=== PATIENT | male | born 1965 | race Caucasian/White ===

== ENCOUNTER 2022-11-09 15:01 | Emergency (ER) | payer BC, SELFPAY ==
[2022-11-09] VITALS (88 sets, daily range): BP systolic 97–127; BP diastolic 50–66; PULSE 68–80; RESP 13–27; TEMP 36.7; O2SAT 89–96
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
--- NOTE | 2022-11-09 15:15 | DI.CT_ITS ---
Exam(s) CT CHEST/ABD/PEL W EXAM: CT CHEST/ABD/PEL W CLINICAL HISTORY: Left-sided chest wall pain. TECHNIQUE: Imaging Protocol: Axial computed tomography images with coronal and sagittal reformatted images were created and reviewed CONTRAST MATERIAL: Intravenous: Omnipaque 350 Contrast volume:100 ml Oral: None COMPARISON: No exams were available for comparison FINDINGS: CHEST: OSSEOUS: There are multiple acute posterior left rib fractures there are adjacent displaced all overr iding fractures of posterior aspect of the left 8th 9th, and 10th ribs. There is a nondisplaced frac ture of the posterior aspect of the left 7th rib.. No scapular fracture there is pleural elevation a t the level of the displaced rib fractures. No obvious fracture on the opposite-right side. No compression fractures. LUNGS: There is no pneumothorax but there are mild increased markings in the lower lobes most probabl y related to hypoaeration. No large lung contusion. No pleural effusions.. MEDIASTINUM: No evidence of sternal fracture nor mediastinal hematoma. No incidental hilar nor media stinal adenopathy. Great vessels intact. CARDIAC: Heart size is normal. There is no pericardial effusion.Thoracic aorta is intact. No dissec tion. No enlargement. ABDOMEN: There is no ascites. No evidence of mesenteric nor bowel wall hematoma. LIVER: No evidence of liver laceration. No focal hepatic lesions. No dilated intrahepatic ducts. GALLBLADDER/BILIARY: No obvious gallbladder pathology. CBD is not dilated. PANCREAS: No evidence of pancreatic mass nor dilatation of the pancreatic duct. SPLEEN: No splenic laceration. Spleen size normal. No perisplenic fluid. Splenic vein is not throm bosed. Portal head patent. ADRENALS: No significant adrenal findings. KIDNEYS: No evidence of renal laceration nor subcapsular hematoma. Small 5 millimeter benign cyst po sterior cortex right kidney noted and does not require further imaging.. No solid lesions. ABDOMINAL AORTA: Intact. Not enlarged. No dissection. LYMPH NODES: There is no retroperitoneal nor paraaortic adenopathy. ABDOMINAL WALL: No evidence of significant anterior abdominal wall nor inguinal hernia. GI: No evidence of bowel wall hematoma nor mesenteric hematoma. Sigmoid diverticulosis. No acute di verticulitis evident. PELVIS: LYMPH NODES: There is no intrapelvic nor inguinal adenopathy. GI: No evidence of appendicitis.No evidence of sigmoid diverticulitis. URINARY BLADDER: Unremarkable. REPRODUCTIVE: Prostate size normal. Seminal vesicles unremarkable. OSSEOUS: No fractures. No facet malalignment. Moderate disc space narrowing L5-S1. IMPRESSION: 1. There are grossly displaced fractures in the posterior aspect of the left 8th, 9th, and 10th ribs as well as a nondisplaced fracture of the posterior aspect of the left 7th rib. 2. No evidence of prominent lung contusion nor pleural effusion or pneumothorax this time. Appropria te follow-up recommended. 3. No evidence of significant trauma sequelae in the abdomen and pelvis. 4. Sigmoid diverticulosis. No obvious acute diverticulitis. RADIATION DOSE DELIVERED: 1559.54 mGy.cm Total DLP DATA REPOSITORY: All CT scans at this facility are submitted to the National Radiology Data Registry (NRDR) Dose Index Registry (DIR) with the [employer] (ACR). RADIATION OPTIMIZATION: All CT scans at this facility use at least one of these dose optimization te chniques: automated exposure control; mA and/or kV adjustment per patient size (includes targeted exa ms where dose is matched to clinical indication); or iterative reconstruction.
--- NOTE | 2022-11-09 15:15 | RT.EKG_ITS ---
APPROVED REPORT Exam: Resting ECG Reason for Exam: Irregular heart rate Patient Location: E HR:87 bpm ECG Measurements Heart Rate 87 AXIS SD 197 P 60 QRSd 102 QRS -19 QT 401 T 31 QTc 483 Conclusion Sinus rhythm...normal P axis, V-rate 60- 99 Ventricular trigeminy...trigeminy string>6 w/ V complexes Probable left atrial enlargement...P >50mS, <-0.10mV V1 Normal sinus rhythm at a rate of 87 with interventricular conduction delay. SD and QTc within normal limits. Left axis deviation no signs of LVH. No prior for comparison. No acute injury pattern. M ild concave upsloping ST segment elevation in V2.
[2022-11-09] MEDS: fentaNYL 100 MCG/2 ML VIAL 75 MCG IVP (15:20)
--- NOTE | 2022-11-09 15:23 | DI.CT_ITS ---
Exam(s) CT THORACIC LUMBAR SPINE REC EXAM: CT THORACIC LUMBAR SPINE REC CLINICAL HISTORY: Back pain TECHNIQUE: COMPARISON: CT CT CHEST/ABD/PEL W from 11/09/2022 FINDINGS: THORACIC SPINAL COLUMN: No evidence of fracture, listhesis, nor facet malalignment. No acute comprom ise of the thoracic spinal canal. LUMBOSACRAL SPINAL COLUMN: No evidence of fracture, listhesis, nor facet malalignment. No pars defec ts. No acute compromise of the lumbosacral spinal column. No obvious sacral fractures. Sacroiliac joints appear unremarkable. IMPRESSION: No fractures evident in the thoracic and lumbosacral spinal columns. No facet malalignment.
[2022-11-09] MEDS: Normal Saline 1,000 ML 1000 ML IV (15:24)
--- NOTE | 2022-11-09 15:30 | DI.RAD_ITS ---
Exam(s) XR SHOULDER RT COMPLETE 2+V EXAM: XR SHOULDER RT COMPLETE 2+V CLINICAL HISTORY: Right shoulder pain. TECHNIQUE: 2D digital imaging was performed. COMPARISON: No exams were available for comparison FINDINGS: Four views No evidence of acute fracture or dislocation. No calcifications in the subacromial space. No obviou s degenerative changes. AC joint appears unremarkable as does the clavicle. IMPRESSION: No acute osseous findings. DATA REPOSITORY: RADIATION DOSE DELIVERED:
[2022-11-09 15:31] LABS: Abs Immature Grans 0.03 10^3/uL (0.0-0.06); Absolute Basophil Count 0.05 10^3/uL (0.0-0.2); Absolute Eosinophil Count 0.32 10^3/uL (0.0-0.7); Absolute Lymphocyte Count 1.14 10^3/uL (1.2-3.4); Absolute Monocyte Count 0.71 10^3/uL (0.1-0.8); Absolute Neutrophil Count 7.84 10^3/uL (1.2-6.7); Basophils % 0.5; Eosinophils % 3.2; HCT 45.9 % (40.0-50.0); Immature Grans % 0.3; Lymphocytes % 11.3; MCH 31.7 pg (27.0-33.0); MCHC 34.9 % (32.0-36.0); MCV 91 fL (80-95); MPV 10.6 fL (8.0-11.0); Neutrophils % 77.7; Platelet Count 178 10^3/uL (130-400); RBC 5.04 10^6/uL (4.36-5.78); RDW 12.4 % (11.8-14.1); RDW-SD 41.2 fL; WBC 10.09 10^3/uL (4.4-10.8)
[2022-11-09] MEDS: Normal Saline - Diluent 50 ML VIAL IJ (15:31)
[2022-11-09] MEDS: Omnipaque 350 MG/ML 100 ML BTL IJ (15:31)
[2022-11-09] MEDS: Normal Saline Flush 10 ML SYR IVP (15:31)
[2022-11-09 15:42] LABS: Anion Gap 9.5 mmol/L (3-11); BUN 25 mg/dL (7-18); CO2 26.5 mmol/L (21.0-32.0); CREATININE 1.3 mg/dL (0.70-1.30); Chloride 105 mmol/L (98-107); Estimated GFR 64.47 (mL/min/1.73m2); Glucose 92 mg/dL (74-106); Potassium 4.3 mmol/L (3.5-5.1); Sodium 141 mmol/L (136-145)
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
--- NOTE | 2022-11-09 16:08 | DI.VRAD_ITS ---
PROCEDURE INFORMATION: Exam: CT Thoracic Spine Without Contrast Exam date and time: 11/09/2022 3:49 PM Age: 57 years old Clinical indication: Other: Back pain TECHNIQUE: Imaging protocol: Computed tomography of the thoracic spine without contrast. Radiation optimization: All CT scans at this facility use at least one of these dose optimization techniques: automated exposure control; mA and/or kV adjustment per patient size (includes targeted exams where dose is matched to clinical indication); or iterative reconstruction. COMPARISON: CT HEAD CERVICAL SPINE WO 11/09/2022 3:38 PM FINDINGS: Nondisplaced fracture in the posterior aspect of the left 7th rib. Grossly displaced fracture in the posterior aspect the left 8th rib. Grossly displaced fracture in the posterior aspect of the left 9th rib. Comminuted displaced fracture of the posterior aspect of the left 10th rib. The vertebral body heights are preserved. No aggressive bone lesion. Very mild multilevel degenerative change. No significant soft tissue abnormality. Focal pleural thickening, left posterior lower lung zone adjacent to rib fractures, may represent subpleural hematoma. Dependent ground-glass opacities may represent hypoventilatory change. Parenchymal hemorrhage may present similarly. A high Small hiatal hernia. Mild coronary artery calcification. IMPRESSION: Acute displaced posterior left 8th, 9th, 10th rib fractures. Nondisplaced posterior left 7th rib fracture. The lateral ribs are excluded from the field of view. Dependent left posterior basilar pleuroparenchymal opacities, may be posttraumatic. PROCEDURE INFORMATION: Exam: CT Lumbar Spine Without Contrast Exam date and time: 11/09/2022 3:49 PM Age: 57 years old Clinical indication: Other: Back pain TECHNIQUE: Imaging protocol: Computed tomography of the lumbar spine without contrast. Radiation optimization: All CT scans at this facility use at least one of these dose optimization techniques: automated exposure control; mA and/or kV adjustment per patient size (includes targeted exams where dose is matched to clinical indication); or iterative reconstruction. COMPARISON: No relevant prior studies available. FINDINGS: Alignment is essentially anatomic. No acute fracture seen. The vertebral body heights are preserved. No aggressive bone lesion. Mild multilevel degenerative change. No significant soft tissue abnormality. Mild symmetric sacroiliitis. Degenerative change of the bilateral hips. Diverticulosis without diverticulitis. IMPRESSION: No acute fracture seen. Dictated and Authenticated by: Mei Green MD. Ordering:SAUL Reno MD
[2022-11-09] MEDS: HYDROmorphone 2 MG/ML SYR 0.5 MG IVP ×2 (16:10→17:19)
[2022-11-09] MEDS: Tetanus & Diphtheria Tox,ADULT 0.5 ML VIAL IM (16:11)
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
[2022-11-09] MEDS: Ondansetron 4 MG/2 ML VIAL IVP (17:00)
[2022-11-09] MEDS: Normal Saline 500 ML IV (17:00)
--- NOTE | 2022-11-09 17:00 | NUR.NOTE ---
pt has become diaphoretic, MD Masterson aware. pt continues to mentate at baseline and maintains vital signs
--- NOTE | 2022-11-09 18:49 | NUR.NOTE ---
report called to [facility], spoke with SHASHA Narvaez
== END 2022-11-09 17:44 | disposition short-term general hospital (02) ==
PROVIDERS: Emergency Provider Emergency Medicine
DX: M25.511 Pain in right shoulder (principal); M54.9 Dorsalgia, unspecified; R07.89 Other chest pain; R10.84 Generalized abdominal pain; V19.9XXA Pedal cyclist (driver) (passenger) injured in unspecified traffic accident, initial encounter; S70.312A Abrasion, left thigh, initial encounter; I48.91 Unspecified atrial fibrillation; S27.322A Contusion of lung, bilateral, initial encounter; J90 Pleural effusion, not elsewhere classified
CPT/HCPCS: 74177; 76604; 76705; 76857; 80048; 86900; 86901; 90471; 93005; 96361; 96374; 96375; 96376; 99285; 99291; 70450; 71260; 72125; 73030; 85025; 93010; J1170; J2405; J3010; J3490